=== PATIENT | male | born 1995 | race Caucasian/White ===

== ENCOUNTER 2017-05-05 15:16 | Emergency (ER) | payer SELFPAY ==
[~2017-05-05] VITALS: Ht 180.3 cm; Wt 60.8 kg
[~2017-05-05 15:16] MED LIST: ALBUAER INH
[2017-05-05 15:19] VITALS: BP 151/98; PULSE 74; TEMP 36.6; O2SAT 98; Ht 180.3 cm; Wt 60.8 kg
[2017-05-05] MEDS ORDERED: HYDROCODONE/ACETAMOPHEN 5/325MG TAB PO STA (15:29)
[2017-05-05] MEDS ORDERED: ACET-1256 PO (15:31)
[2017-05-05] MEDS ORDERED: VNTHFA/IN INH (15:31)
[2017-05-05] MEDS ORDERED: IBUP-1050 PO (15:31)
--- NOTE | 2017-05-05 15:35 | EMERGENCY ROOM VISIT NOTE ---
ED Visit Note First contact with patient: 15:24 CHIEF COMPLAINT: Toothache HISTORY OF PRESENT ILLNESS: This 22-year-old male presents the ER with chief complaint of left lower tooth pain. The patient states that he had this tooth filled in the past and a portion of the filling had fallen out. He had contacted the dentist at that time and he has not been able to get back into have it fixed. He thinks then his daughter accidentally hit him underneath the chin and more of the filling fell out yesterday. He then started with pain yesterday. He has been taking Tylenol and ibuprofen without any relief. The patient denies any facial swelling are not any neck pain. REVIEW OF SYSTEMS: 6 system review was performed and was negative unless stated otherwise in history of present illness. PMH: The patient is healthy; asthma SOCIAL HISTORY: Patient lives with his parents. The patient admits to tobacco use but denies any alcohol use PHYSICAL EXAM: Vital Signs: Were reviewed Reviewed Nurse's notes. GEN.: 22-year -old male appears in no acute distress. MENTAL Status: Alert and oriented 3. MOUTH: #20 tooth with diffuse decay any portion of it missing. Poor dental hygiene is noted. No surrounding gingival erythema or edema noted. FACE: No erythema or edema noted. NECK: Supple, no lymphadenopathy noted. CARDIAC: Regular rate and rhythm without murmur. LUNGS: Clear to auscultation without wheezes rales or rhonchi. EMERGENCY COURSE: The patient was evaluated. The patient was given dental wax. The patient was given [place] 5/325 mg 2 tablets by mouth for pain. The patient was discharged home in stable condition with his girlfriend driving. DIAGNOSIS: Dental caries and dentalgia DISCHARGE INSTRUCTIONS & TREATMENT: Continue ibuprofen 600 mg every 6 hours with pain. Take [place] as needed for more severe pain. Do not drive while taking the [place]. Take amoxicillin as prescribed. Use dental wax as directed. Call your dentist tomorrow for definitive care. Problem List Medical Problems: (1) Asthma Status: Chronic (2) Arevalo's Palsy Status: Resolved (3) Lyme Disease Status: Resolved (4) Nose reconstruction Status: Resolved Current/Historical Medications Scheduled PRN Albuterol (Proventil Hfa), 2 PUFFS INH QID PRN for SOB/Wheezing Allergies Coded Allergies: No Known Allergies (Unverified , 4/25/15) Vital Signs Date Time Temp Pulse Resp B/P (MAP) Pulse Ox O2 Delivery O2 Flow Rate FiO2 05/05/17 15:19 36.6 74 18 151/98 98 Room Air Departure Information Referrals No Doctor, Assigned (PCP) Patient Instructions [facility]
[2017-05-05] MEDS ORDERED: HYDR-5688 PO (15:36)
[2017-05-05] MEDS ORDERED: AMOX500C3 PO (15:36)
== END 2017-05-05 15:49 | disposition home or self-care (01) ==
LOC: C.EDB 15:17 → C.EDD 15:49
DX: K02.9 Dental caries, unspecified (principal); K08.89 Other specified disorders of teeth and supporting structures; J45.909 Unspecified asthma, uncomplicated; Z72.0 Tobacco use